=== PATIENT | male | born 1975 | race African-American/Black ===

== ENCOUNTER 2023-06-04 08:05 | Outpatient (CLI) | payer OTHER | END 2023-06-04 08:06 | disposition home or self-care (01) | LOC: SCSMRI 08:05 | PROVIDERS: ATTEND Neurological Surgery | DX: M47.22 Other spondylosis with radiculopathy, cervical region (principal); G35 Multiple sclerosis; R93.7 Abnormal findings on diagnostic imaging of other parts of musculoskeletal system; R90.82 White matter disease, unspecified | CPT/HCPCS: 70553; 72142 ==